=== PATIENT | male | born 1980 | race Caucasian/White ===

== ENCOUNTER 2020-11-08 04:10 | Emergency (ER) | payer SELFPAY ==
[~2020-11-08] VITALS: Ht 170.2 cm; Wt 61.4 kg
--- NOTE | 2020-11-08 04:14 | PHYS DOC ---
Past History Past Medical History: A-Fib, Alcoholism General Adult HPI: HPI: "..I ve been vomiting.. .. My gut hurts.. hope it not hepatitis or something.. hope may just bad food.. I do drink every night.. usually pint Jalen Beam whiskey..." Patient is a 40 year old male who presents with above hx and complaints of nausea, vomiting and weakness. Patient denies any intake of bad food. Does consume alcohol daily. Patient localizes pain to epigastric area. Patient dry heaving on arrival. No history of tarry stools. No recent travel outside [facility]. No specific ill contacts. Does not follow with primary care. Patient does smoke. Patient denies other drug use. No sick history of Covid contacts. Patient did not get flu vaccination this year. I Review of Systems: Review of Systems: Constitutional: Denies fever or chills Eyes: Denies change in visual acuity HENT: Denies nasal congestion or sore throat Respiratory: Denies cough or shortness of breath Cardiovascular: Denies chest pain or edema GI: complaints of abdominal pain, nausea, vomiting,. Pt denies bloody stools or diarrhea : Denies dysuria Musculoskeletal: Denies back pain or joint pain Integument: Denies rash Neurologic: Denies headache, focal weakness or sensory changes Endocrine: Denies polyuria or polydipsia Lymphatic: Denies swollen glands Psychiatric: Denies depression or anxiety Family History: Family History: Noncontributory to presentation Current Medications: Current Meds: See nursing for home meds Allergies: Allergies: No known drug allergies Physical Exam: PE: Constitutional:inj acute distress, ill in appearance. [] HENT: Normocephalic, atraumatic, bilateral external ears normal, oropharynx dry, no oral exudates, nose normal. [] Eyes: PERRLA, EOMI, conjunctiva normal, no discharge. [] Neck: Normal range of motion, no tenderness, supple, no stridor. [] Cardiovascular: Tachycardia heart rate regular rhythm, does appear to be having runs of A. fib on monitor that are intermittent, no murmur [] Lungs & Thorax: Bilateral breath sounds equal apex with scattered wheezes on auscultation [] Abdomen: Bowel sounds decreased, soft, epigastric tenderness, no masses, no pulsatile masses. Active dry heaves. Rebound epigastric area Skin: Warm, dry, no erythema, no rash. [] Back: No tenderness, no CVA tenderness. [] Extremities: No tenderness, no cyanosis, no clubbing, ROM intact, no edema. [] Neurologic: Alert and oriented X 3, normal motor function, normal sensory function, no focal deficits noted. [] Psychologic: Affect anxious, judgement normal, mood normal. [] EKG: EKG: My interpretation EKG shows a sinus tachycardia 119 bpm irregular rate and rhythm consistent with A. fib type pattern Radiology/Procedures: Radiology/Procedures: [[address] [address] IMAGING REPORT Signed PATIENT: GLORY DOMINGUEZ ACCOUNT: [id number] : 1980 LOCATION: ER AGE: 40 SEX: M EXAM STATUS: REG ER ORD. PHYSICIAN: KIRSTEN SMITH MD REASON: Abdomen pain, nausea and vomiting PROCEDURE: ACUTE ABDOMEN SERIES INDICATION: Reason: Abdomen pain, nausea and vomiting / Spl. Instructions: / History: COMPARISON: None. IMPRESSION: 3 views of the chest and abdomen obtained. No focal airspace consolidation or pulmonary edema. Air scattered throughout the large and small bowel in a nonspecific but not grossly obstructive pattern. Electronically signed by: Irene Ellis MD (11/08/2020 5:44 AM) DESKTOP- [id number] DICTATED AND SIGNED BY: IRENE ELLIS MD DATE: 11/08/20 0541 CC: KIRSTEN SMITH MD; PCP,NO ~MTH0 0 ][address] [address] IMAGING REPORT Signed PATIENT: GLORY DOMINGUEZ ACCOUNT: [id number] : 1980 LOCATION: ER AGE: 40 SEX: M EXAM STATUS: REG ER ORD. PHYSICIAN: KIRSTEN SMITH MD REASON: Abdomen pain, nausea and vomiting PROCEDURE: ACUTE ABDOMEN SERIES INDICATION: Reason: Abdomen pain, nausea and vomiting / Spl. Instructions: / History: COMPARISON: None. IMPRESSION: 3 views of the chest and abdomen obtained. No focal airspace consolidation or pulmonary edema. Air scattered throughout the large and small bowel in a nonspecific but not grossly obstructive pattern. Electronically signed by: Irene Ellis MD (11/08/2020 5:44 AM) DESKTOP- [id number] DICTATED AND SIGNED BY: IRENE ELLIS MD DATE: 11/08/20 0541 CC: KIRSTEN SMITH MD; PCP,NO ~MTH0 0 Heart Score: HEART Score for Chest Pain: HEART Score for Chest Pain Response (Comments) Value History Moderately Suspicious 1 ECG Nonspecific Repolarizatio 1 Age < 45 0 Risk Factors 1 or 2 Risk Factors 1 Troponin < Normal Limit 0 Total 3 Risk Factors: Risk Factors: DM, Current or recent (<one month) smoker, HTN, HLP, family history of CAD, obesity. Risk Scores: Score 0 - 3: 2.5% MACE over next 6 weeks - Discharge Home Score 4 - 6: 20.3% MACE over next 6 weeks - Admit for Clinical Observation Score 7 - 10: 72.7% MACE over next 6 weeks - Early Invasive Strategies Course & Med Decision Making: Course & Med Decision Making Pertinent Labs and Imaging studies reviewed. (See chart for details) Pt. endorsed to Dr. Owen at shift change. She will make disposition. Pt. to stay on clear fluid diet x 24 hrs. Take Zofran as needed for nausea and vomiting. Pepcid 20 mg twice a day. Follow up with primary. Will start patient on Eliquis 5 mg twice a day. Patient must follow-up with cardiology. Risk of discharge discussed at length with patient. Patient requesting discharge and no admission at this time. Patient advised excessive alcohol use can trigger A. fib or other heart dysrhythmias. Push fluids. Push fruit juices. Return if he elects to be admitted or have further evaluation. Patient insistent on discharge at this time. At time of discharge patient stated he felt much better and that he would follow-up. Did give the patient a 3-day work excuse a close follow-up with his primary care. Encourage patient to avoid further alcohol abuse. Impression: 1. Nausea and Vomiting 2. Viral Snydrome 3. Episodes of Afib- interment on monitor 4. Dehydration 5. Hx. of Alcohol Abuse [] Dragjerry Disclaimer: Reyes Disclaimer: This electronic medical record was generated, in whole or in part, using a voice recognition dictation system. Departure Departure: Referrals: PCP,RAKESH (PCP) Scripts Apixaban (ELIQUIS) 5 Mg Tablet 5 MG PO BID for afib for 30 Days, #60 TAB Prov: KIRSTEN SMITH MD 11/08/20 Ondansetron Hcl (ZOFRAN) 4 Mg Tablet 8 MG PO QIDPRN PRN for NAUSEA/VOMITING, #30 TAB Prov: KIRSTEN SMITH MD 11/08/20 Famotidine (PEPCID) 20 Mg Tablet 20 MG PO BID for gastritis for 30 Days, #60 TAB Prov: KIRSTEN SMITH MD 11/08/20 Dragon Disclaimer This chart was dictated in whole or in part using Voice Recognition software in a busy, high-work load, and often noisy Emergency Department environment. It may contain unintended and wholly unrecognized errors or omissions. KIRSTEN SMITH MD Nov 08, 2020 04:14
[2020-11-08] MEDS ORDERED: IV RINGERS SOLUTION,LACTATED 1,000 ML IV SCH (04:45)
[2020-11-08] MEDS ORDERED: MVI, ADULT NO.4 WITH VIT K 10 ML, THIAMINE INJ 100 MG in IV RINGERS SOLUTION,LACTATED 1... IV ONE (05:00)
[2020-11-08] MEDS ORDERED: ONDANSETRON PF 4 MG/2 ML VIAL. IVP ONE (05:00)
[2020-11-08] MEDS ORDERED: FAMOTIDINE 20 MG/2 ML VIAL IVP ONE (05:00)
[2020-11-08] MEDS ORDERED: FOLIC ACID 1 MG TABLET PO ONE (05:00)
--- NOTE | 2020-11-08 05:47 | RAD ---
INDICATION: Reason: Abdomen pain, nausea and vomiting / Spl. Instructions: / History: COMPARISON: None. IMPRESSION: 3 views of the chest and abdomen obtained. No focal airspace consolidation or pulmonary edema. Air scattered throughout the large and small slmi l in a nonspecific but not grossly obstructive pattern. Electronically signed by: Cassius Jeronimo MD (11/08/2020 5:44 AM) DESKTOP-[id number]
[2020-11-08 06:00] VITALS: BP 118/81
[2020-11-08 06:33] LABS: BASO # 0.1 x10^3/uL (0.0-0.2); BASO % 1 % (0-3); EOS % 0 % (0-3); HEMATOCRIT 45.2 % (39.0-53.0); HEMOGLOBIN 15.2 g/dL (13.0-17.5); LYMPH # 1.4 x10^3/uL (1.0-4.8); LYMPH % 14 % (24-48); MEAN CORPUSCULAR HEMOGLOBIN 31 pg (25-35); MEAN CORPUSCULAR HGB CONC 34 g/dL (31-37); MEAN CORPUSCULAR VOLUME 92 fL (79-100); MONO # 0.8 x10^3/uL (0.0-1.1); MONO % 7 % (0-9); NEUT # 7.9 x10^3uL (1.8-7.7); NEUT % 78 % (31-73); PLATELET COUNT 276 x10^3/uL (140-400); RED BLOOD COUNT 4.94 x10^6/uL (4.30-5.70); RED CELL DISTRIBUTION WIDTH 12.9 % (11.5-14.5); WHITE BLOOD COUNT 10.1 x10^3/uL (4.0-11.0)
[2020-11-08 06:44] LABS: CREATININE 1.1 mg/dL (0.7-1.3); GFR 74.5; POTASSIUM 4.3 mmol/L (3.5-5.1)
[2020-11-08 06:51] LABS: ALBUMIN 4.2 g/dL (3.4-5.0); DIRECT BILIRUBIN 0.1 mg/dL (0.0-0.2); TOTAL BILIRUBIN 0.2 mg/dL (0.2-1.0)
[2020-11-08] MEDS ORDERED: ONDA4TAB7 PO (07:03)
[2020-11-08] MEDS ORDERED: FAMO-63 PO (07:03)
[2020-11-08] MEDS ORDERED: APIX5TAB3 PO (07:09)
[2020-11-08] MEDS ORDERED: APIXABAN 5 MG TABLET. PO ONE (07:12)
--- NOTE | 2020-11-08 11:55 | EKG ---
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
== END 2020-11-08 07:34 | disposition home or self-care (01) ==
LOC: ER 04:10
DX: B34.9 Viral infection, unspecified (principal); I48.91 Unspecified atrial fibrillation; E86.0 Dehydration; R11.2 Nausea with vomiting, unspecified; F10.20 Alcohol dependence, uncomplicated; Y90.0 Blood alcohol level of less than 20 mg/100 ml
CPT/HCPCS: 36415; 74022; 80048; 80076; 82150; 82550; 83690; 84484; 85025; 85610; 85730; 93005; 96361; 96374; 99285; G0480; J2405; J7120

== ENCOUNTER 2021-01-25 22:43 | Emergency (ER) | payer SELFPAY ==
[~2021-01-25] VITALS: Ht 170.2 cm; Wt 66.7 kg
[~2021-01-25 22:43] MED LIST: APIX5TAB3 PO; FAMO-63 PO; ONDA4TAB7 PO
--- NOTE | 2021-01-25 22:48 | PHYS DOC ---
Past History Past Medical History: A-Fib, Alcoholism, MRSA Additional Past Medical Histor: alcoholism Past Surgical History: No Surgical History Smoking: Cigarettes Alcohol Use: Heavy General Adult HPI: HPI: ".. I got these abscess.. or infections.. I was started on Bactrim.. .all are getiting better.. except the Rt. calf one is still red.. the doctor upstairs.. said the abscess was too deep to drain.. but... it starting to hurt a lot ..." Patient is a 40 year old male who presents with above hx and complaints multiple areas of cellulitis and abscess formation. Patient currently on Bactrim DS 1 tablet twice a day has taken a total of 3 tablets since filling the prescription. Patient did not get a update in tetanus previously. Does not remember his last tetanus vaccination. Patient denies any history immune suppression. No recent travel. No specific ill contacts. Patient does smoke and drink alcohol daily. Patient has a 3 cm area of abscess with surrounding erythema. There is some striation. There is no adenopathy at knee or femoral. Review of Systems: Review of Systems: Constitutional: Denies fever or chills Eyes: Denies change in visual acuity HENT: Denies nasal congestion or sore throat Respiratory: Denies cough or shortness of breath Cardiovascular: Denies chest pain or edema GI: Denies abdominal pain, nausea, vomiting, bloody stools or diarrhea : Denies dysuria Musculoskeletal: Denies back pain or joint pain Integument: Complains of cellulitis and abscess right calf. Neurologic: Denies headache, focal weakness or sensory changes Endocrine: Denies polyuria or polydipsia Lymphatic: Denies swollen glands Psychiatric: Denies depression or anxiety Family History: Family History: Noncontributory to presentation Current Medications: Current Meds: See nursing for home meds Allergies: Allergies: Allergies Coded Allergies Type Severity Reaction Last Updated Verified No Known Drug Allergies 11/08/20 No Physical Exam: PE: Constitutional: Well developed, well nourished, no acute distress, non-toxic appearance. [] HENT: Normocephalic, atraumatic, bilateral external ears normal, oropharynx moist, no oral exudates, nose normal. [] Eyes: PERRLA, EOMI, conjunctiva normal, no discharge. [] Neck: Normal range of motion, no tenderness, supple, no stridor. [] Cardiovascular:Heart rate regular rhythm, no murmur [] Lungs & Thorax: Bilateral breath sounds clear to auscultation [] Abdomen: Bowel sounds normal, soft, no tenderness, no masses, no pulsatile masses. [] Skin: Warm, dry, no erythema, no rash. [] Back: No tenderness, no CVA tenderness. [] Extremities: No tenderness, no cyanosis, no clubbing, ROM intact, no edema. [] Neurologic: Alert and oriented X 3, normal motor function, normal sensory function, no focal deficits noted. [] Psychologic: Affect normal, judgement normal, mood normal. [] EKG: EKG: [] Radiology/Procedures: Radiology/Procedures: [] Heart Score: Risk Factors: Risk Factors: DM, Current or recent (<one month) smoker, HTN, HLP, family history of CAD, obesity. Risk Scores: Score 0 - 3: 2.5% MACE over next 6 weeks - Discharge Home Score 4 - 6: 20.3% MACE over next 6 weeks - Admit for Clinical Observation Score 7 - 10: 72.7% MACE over next 6 weeks - Early Invasive Strategies Course & Med Decision Making: Course & Med Decision Making Pertinent Labs and Imaging studies reviewed. (See chart for details) Procedure-area of abscess cleaned with Betadine. Incised area with a 15 blade with return of pus. Abscess cyst broken down. Then dressing then applied. Patient warned that site will bleed for some time. Patient to start compresses left very warm salt or Epson salts water. Patient did receive a IM injection of Rocephin. To do moist compresses with salt water or Epson salts 4 times a day. Afterwards a massage in the antibiotic ointment. Continue the Bactrim DS twice a day. Follow-up primary care. Return if any concerns. Patient reports some relief of pressure and pain after the incision and drainage. Take Tylenol and ibuprofen for pain. Impression: 1. Right calf abscess 2. History of alcohol abuse 3. Tobacco use [] Dragon Disclaimer: Dragon Disclaimer: This electronic medical record was generated, in whole or in part, using a voice recognition dictation system. Departure Departure: Referrals: PCP,RAKESH (PCP) Reyes Disclaimer This chart was dictated in whole or in part using Voice Recognition software in a busy, high-work load, and often noisy Emergency Department environment. It may contain unintended and wholly unrecognized errors or omissions. Dragon Disclaimer This chart was dictated in whole or in part using Voice Recognition software in a busy, high-work load, and often noisy Emergency Department environment. It may contain unintended and wholly unrecognized errors or omissions. KIRSTEN SMITH MD Jan 25, 2021 22:48
[2021-01-25 22:53] VITALS: BP 127/81
[2021-01-25] MEDS ORDERED: TETANUS AND DIPHTHERIA TOX/PF 0.5 ML VIAL. VAX IM ONE (23:45)
[2021-01-25] MEDS ORDERED: cefTRIAXone IM 1 GM VIAL IM ONE (23:55)
[2021-01-26] MEDS ORDERED: DIPH,PERTUSS(ACELL),TET VAC/PF 0.5 ML SYRINGE. VAX IM ONE
== END 2021-01-26 00:35 | disposition home or self-care (01) ==
LOC: ER 22:43
DX: L02.415 Cutaneous abscess of right lower limb (principal); F17.210 Nicotine dependence, cigarettes, uncomplicated; I48.91 Unspecified atrial fibrillation; F10.20 Alcohol dependence, uncomplicated; Y90.9 Presence of alcohol in blood, level not specified; Z86.14 Personal history of Methicillin resistant Staphylococcus aureus infection
CPT/HCPCS: 90471; 90715; 96372; 99284; J0696

== ENCOUNTER 2021-09-14 11:23 | Emergency (ER) | payer SELFPAY ==
[~2021-09-14] VITALS: Ht 170.2 cm; Wt 65.9 kg
--- NOTE | 2021-09-14 12:05 | RAD ---
Exam Date: 09/14/2021 11:53 AM XR CHEST 2V Indication: Reason: cough times 1 month / Spl. Instructions: / History: . FINDINGS/ IMPRESSION: The cardiac silhouette and pulmonary vasculature are within normal limits. There is no focal consolidation, pleural effusion or pneumothorax. The visualized osseous structures are intact. Electronically signed by: Clark Hahn MD (09/14/2021 12:03 PM) [id number]
--- NOTE | 2021-09-14 12:11 | PHYS DOC ---
Past History Past Medical History: A-Fib, Alcoholism, MRSA Additional Past Medical Histor: alcoholism Past Surgical History: No Surgical History Smoking: Cigarettes Alcohol Use: Heavy General Adult EDM: Chief Complaint: COUGH HPI: HPI: Patient is a 41-year-old male coming in for 1 month of cough. Patient states he was tested for COVID-19 2 weeks ago and it was negative. Denies any fevers, chills, loss of smell or taste, vomiting or diarrhea. Patient smokes a pack of cigarettes daily. Review of Systems: Review of Systems: All other systems within normal limits except for as noted in the HPI Allergies: Allergies: Allergies Coded Allergies Type Severity Reaction Last Updated Verified No Known Drug Allergies 09/14/21 No Physical Exam: PE: Constitutional: Well developed, well nourished, no acute distress, non-toxic appearance. [] HENT: Normocephalic, atraumatic, bilateral external ears normal, nose normal. [] Eyes: PERRLA, conjunctiva normal, no discharge. [] Neck: No rigidity, supple, no stridor. [] Cardiovascular: Regular rate and rhythm, brisk cap refill [] Lungs & Thorax: Non labored symmetric respirations, no tachypnea or respiratory distress [] Abdomen: Soft, nondistended. Skin: Warm, dry, no erythema, no rash. [] Back: Unremarkable Extremities: No deformities, range of motion grossly intact, no lower extremity edema [] Neurologic: Alert and oriented X 3, no focal deficits noted. [] Psychologic: Affect normal, judgement normal, mood normal. [] Current Patient Data: Vital Signs: Vital Signs Date Time Temp Pulse Resp B/P (MAP) Pulse Ox O2 Delivery O2 Flow Rate FiO2 09/14/21 11:35 98.0 120 18 126/89 (101) 100 Room Air EKG: EKG: [] Radiology/Procedures: Radiology/Procedures: [address] [address] IMAGING REPORT Signed PATIENT: GLORY DOMINGUEZ ACCOUNT: [id number] : 1980 LOCATION: ER AGE: 41 SEX: M EXAM STATUS: REG ER ORD. PHYSICIAN: CONSTANTINO JOHNSTON MD REASON: cough times 1 month PROCEDURE: CHEST PA & LATERAL Exam Date: 09/14/2021 11:53 AM XR CHEST 2V Indication: Reason: cough times 1 month / Spl. Instructions: / History: . FINDINGS/ IMPRESSION: The cardiac silhouette and pulmonary vasculature are within normal limits. There is no focal consolidation, pleural effusion or pneumothorax. The visualized osseous structures are intact. Electronically signed by: Zack Wylie MD (09/14/2021 12:03 PM) [id number] DICTATED AND SIGNED BY: ZACK WYLIE MD DATE: 09/14/21 1159 CC: CONSTANTINO JOHNSTON MD; PCP,NO ~MTH0 0 [] Heart Score: C/O Chest Pain: No Risk Factors: Risk Factors: DM, Current or recent (<one month) smoker, HTN, HLP, family history of CAD, obesity. Risk Scores: Score 0 - 3: 2.5% MACE over next 6 weeks - Discharge Home Score 4 - 6: 20.3% MACE over next 6 weeks - Admit for Clinical Observation Score 7 - 10: 72.7% MACE over next 6 weeks - Early Invasive Strategies Course & Med Decision Making: Course & Med Decision Making Pertinent Labs and Imaging studies reviewed. (See chart for details) [] Dragon Disclaimer: Dragon Disclaimer: This electronic medical record was generated, in whole or in part, using a voice recognition dictation system. Departure Departure: Impression: Primary Impression: Cough Additional Impression: Person under investigation for COVID-19 Disposition: 01 HOME / SELF CARE / HOMELESS Condition: STABLE Referrals: PCP,NO (PCP) Patient Instructions: Cough, Adult Additional Instructions: You have been tested for or diagnosed with COVID-19. It is an infection caused by a new type of coronavirus. COVID-19 will cause cold-like or mild flu symptoms in most. It can cause more severe symptoms like problems breathing in some. There is no treatment for COVID-19. The body will clear the infection over time. Self-care will help to ease discomfort. Steps to Take: Self-Care Rest as needed. Healthy habits may help you feel better. Steps include: Choose healthy foods including fruits and vegetables. Drink water throughout the day. Get plenty of sleep each night. If you smoke, try to quit. It may ease breathing. Avoid alcohol. Keep Others Healthy The virus can spread to others. Droplets are released every time you sneeze or cough. The droplets can get into the mouth, nose, or eyes of people near you and lead to infection. To lower the chances of spreading COVID-19 to others: Stay at home until your doctor has said it is safe to leave. If you tested positive this will mean staying isolated until both of the following are true: At least 7 days have passed since the start of illness. You are free of fever for at least 72 hours without the use of medicine. During this time: - Avoid public areas, events, or transportation. Do not return to work or school until your doctor has said it is safe to do so. - Call ahead if you need to go to a medical center. Let them know you may have COVID-19. It will help them guide you where to go. They may also ask you to wear a facemask when you come to the office. - If you call for emergency medical services, let them know you may have COVID- 19. While at home: - Try to avoid close contact with others. Stay about 6 feet away. - If possible, spend most of your time in a separate room from others. - Use a face mask if you will be in close contact with others such as sharing a room or vehicle. - Have someone wipe down common surfaces in the home. Use household veterinary toxicologist every day on areas like doorknobs, counters, or sinks. - Cough or sneeze into a tissue. Throw the tissue away right after use. If a tissue is not available, cough or sneeze into your elbow. - Wash your hands often. Wash them after sneezing or coughing. Use soap and water and wash for at least 20 seconds. Alcohol based hand ship cleaner can be used if soap and water is not available. - Do not prepare food for others. Avoid sharing personal items like forks, spoons, or toothbrushes. - Avoid close contact with pets while you are sick. There is no evidence of the virus passing to pets. This is a safety step until more is known about this virus. Isolation can be frustrating. Social interaction can help. Keep in touch with friends and family through phone and tech options. You can still interact with others in your home, just keep a safe distance of about 6 feet. Follow-up: Your doctors office will check in with you to see if there are any changes in your health. You may be asked to keep track of symptoms to share with them. They will also let you know when you are clear to be in public again. Problems to Look Out For: Contact your doctor if your recovery is not going as you expect. Get emergency care if you have problems such as: - Trouble breathing - Nonstop chest pain or pressure - Changes in awareness, confusion, or problems waking - Lips or face have bluish color - Worsening of symptoms If you think you have an emergency, call for emergency medical services right away. As taken from [facility] CONSTANTINO JOHNSTON MD Sep 14, 2021 12:11
[2021-09-14 12:27] LABS: INFLUENZA A PATIENT NEGATIVE (NEGATIVE); INFLUENZA B PATIENT NEGATIVE (NEGATIVE)
[2021-09-14 12:41] VITALS: BP 122/73
== END 2021-09-14 12:40 | disposition home or self-care (01) ==
LOC: ER 11:23
DX: R05.9 Cough, unspecified (principal); F17.210 Nicotine dependence, cigarettes, uncomplicated; Z20.822 Contact with and (suspected) exposure to COVID-19
CPT/HCPCS: 71046; 87804; 99284; C9803; U0003

== ENCOUNTER 2022-01-08 00:12 | Emergency (ER) | payer SELFPAY ==
[~2022-01-08] VITALS: Ht 170.2 cm; Wt 65.9 kg
--- NOTE | 2022-01-08 00:28 | PHYS DOC ---
Past History Past Medical History: A-Fib, Alcoholism, MRSA Additional Past Medical Histor: alcoholism Past Surgical History: No Surgical History Smoking: Cigarettes Alcohol Use: Heavy General Adult HPI: HPI: ".. I hurt all over.. puking now.. I did nt get my COVID shot or. .. flu...but I worried I have COVID now.. " Patient is a 41 year old male who presents with above hx fever, nausea, vomiting, chills, myalgia, arthralgia, malaise. Pt. did not get flu or covid vaccinations. Not had Pneumovax . Patient smokes about half pack a day and drinks alcohol daily. No recent travel. No significant ill contacts. No bad food intake. No history immunosuppression. Review of Systems: Review of Systems: Constitutional: Complains of fever or chills Eyes: Denies change in visual acuity HENT: Denies nasal congestion or sore throat Respiratory: Complains of cough and wheezing Cardiovascular: Denies chest pain or edema GI: Complains of epigastric abdominal pain, nausea, vomiting. Denies, bloody stools or diarrhea : Denies dysuria Musculoskeletal: Complains of myalgia arthralgia Integument: Denies rash Neurologic: Denies headache, focal weakness or sensory changes Endocrine: Denies polyuria or polydipsia Lymphatic: Denies swollen glands Psychiatric: Complains of anxiety Family History: Family History: Noncontributory to presentation Current Medications: Current Meds: Current Medications Medications (Trade) Dose Ordered Sig/[facility] Start Time Stop Time Status Last Admin Dose Admin Ondansetron HCl (Zofran Odt) 8 mg 1X ONCE 01/08/22 01:00 01/08/22 01:01 Allergies: Allergies: Allergies Coded Allergies Type Severity Reaction Last Updated Verified No Known Drug Allergies 09/14/21 No Physical Exam: PE: Constitutional: Moderate acute distress, ill appearance. [] HENT: Normocephalic, atraumatic, bilateral external ears normal, oropharynx moist, no oral exudates, nose swollen turbinates and clear rhinorrhea. Very poor dentition. Eyes: PERRLA, EOMI, conjunctiva normal, no discharge. [] Neck: Normal range of motion, no tenderness, supple, no stridor. [] Cardiovascular: Tachycardia heart rate regular rhythm, no murmur []. Bedside monitor shows a sinus tachycardia Lungs & Thorax: Bilateral breath sounds equal apex with scattered wheezes and crackles on auscultation [] Abdomen: Bowel sounds normal, soft, epigastric tenderness, no masses, no pulsatile masses. 1 episode of vomiting while in the ED. Skin: Warm, dry, no erythema, no rash. Poor turgor Back: No tenderness, no CVA tenderness. [] Extremities: No tenderness, no cyanosis, no clubbing, ROM intact, no edema. No cording appreciated Neurologic: Alert and oriented X 3, normal motor function, normal sensory function, no focal deficits noted. [] Psychologic: Affect anxious, judgement normal, mood normal. [] EKG: EKG: My interpretation EKG shows sinus tachycardia 124 bpm. Has a mild right bundle branch block. But no findings of acute STEMI of contralateral changes time of EKG is 119 hours [] Radiology/Procedures: Radiology/Procedures: [][address] [address] IMAGING REPORT Signed PATIENT: GLORY DOMINGUEZ ACCOUNT: [id number] : 1980 LOCATION: ER AGE: 41 SEX: M EXAM STATUS: REG ER ORD. PHYSICIAN: KIRSTEN SMITH MD REASON: cough, n/v, fever PROCEDURE: ACUTE ABDOMEN SERIES XR ABDOMEN COMP ACUTE INDICATION: cough, n/v, fever COMPARISON STUDY: 09/14/2021. FINDINGS: Lungs: Normal lung volume. No pulmonary mass or consolidation. The tracheobronchial tree and hilar structures are normal. Pleura: No pleural effusion or pneumothorax. Heart and Mediastinum: The cardiomediastinal silhouette is normal. The great vessels of the thorax are normal. Abdomen: Nonobstructive bowel gas pattern. No free air. IMPRESSION: 1. Nonobstructive bowel gas pattern. No free air. 2. No consolidation Electronically signed by: Jose L Duggan MD (01/08/2022 1:35 AM) [facility] DICTATED AND SIGNED BY: JOSE L DUGGAN MD DATE: 01/08/22 0134 CC: KIRSTEN SMITH MD; PCP,NO ~MTH0 0 Heart Score: C/O Chest Pain: No HEART Score for Chest Pain: HEART Score for Chest Pain Response (Comments) Value History Moderately Suspicious 1 ECG Nonspecific Repolarizatio 1 Age < 45 0 Risk Factors 1 or 2 Risk Factors 1 Troponin < Normal Limit 0 Total 3 Risk Factors: Risk Factors: DM, Current or recent (<one month) smoker, HTN, HLP, family history of CAD, obesity. Risk Scores: Score 0 - 3: 2.5% MACE over next 6 weeks - Discharge Home Score 4 - 6: 20.3% MACE over next 6 weeks - Admit for Clinical Observation Score 7 - 10: 72.7% MACE over next 6 weeks - Early Invasive Strategies Course & Med Decision Making: Course & Med Decision Making Pertinent Labs and Imaging studies reviewed. (See chart for details) Stop smoking. Avoid excessive alcohol use. Follow-up pending labs and cultures. Take Zithromax 250 a day. Use MDI 2 puffs 4 times a day. Take Zofran 8 mg up to 4 times a day for active nausea and vomiting. Self isolate for the next 5 days. Tylenol and ibuprofen for discomfort. Clear fluid diet if nausea vomiting. Would get COVID vaccination and flu vaccination and Pneumovax went over this acute illness. Clear fluid diet if you are active vomiting no solids. No milk products. [] Impression: 1. Atypical pneumonia-suspect viral 2. Alcohol abuse 3. Dehydration 4. Elevated AST 23, ALT 138, alk phos 118 5. Mild leukocytosis 11.7 6. Mild hyponatremia 133 and potassium 3.4 7. Tobacco use Dragon Disclaimer: Dragon Disclaimer: This electronic medical record was generated, in whole or in part, using a voice recognition dictation system. Departure Departure: Referrals: PCP,NO (PCP) Scripts Ondansetron (ONDANSETRON ODT) 8 Mg Tab.rapdis 8 MG PO QIDPRN PRN for NAUSEA/VOMITING, #30 TAB Prov: KIRSTEN SMITH MD 01/08/22 Azithromycin (ZITHROMAX) 250 Mg Tablet 250 MG PO DAILY for ANTI-BIOTIC for 5 Days, #5 TAB 0 Refills Prov: KIRSTEN SMITH MD 01/08/22 Reyes Disclaimer This chart was dictated in whole or in part using Voice Recognition software in a busy, high-work load, and often noisy Emergency Department environment. It may contain unintended and wholly unrecognized errors or omissions. KIRSTEN SMITH MD Jan 08, 2022 00:28
[2022-01-08 00:48] LABS: INFLUENZA A PATIENT NEGATIVE (NEGATIVE); INFLUENZA B PATIENT NEGATIVE (NEGATIVE)
[2022-01-08] MEDS ORDERED: ONDANSETRON ODT 4 MG TAB.RAPDIS PO ONE (01:00)
[2022-01-08] MEDS ORDERED: IV RINGERS SOLUTION,LACTATED 1,000 ML IV SCH (01:00)
[2022-01-08] MEDS ORDERED: KETOROLAC 30 MG/ML VIAL. IVP ONE (01:00)
[2022-01-08] MEDS ORDERED: FAMOTIDINE 20 MG/2 ML VIAL IVP ONE (01:00)
[2022-01-08] MEDS ORDERED: ACETAMINOPHEN 500 MG TABLET PO ONE (01:00)
[2022-01-08 01:29] LABS: CALCIUM 8.9 mg/dL (8.5-10.1); CREATININE 1.1 mg/dL (0.7-1.3); GFR 74.1; POTASSIUM 3.4 mmol/L (3.5-5.1)
[2022-01-08] MEDS ORDERED: ONDANSETRON PF 4 MG/2 ML VIAL. IVP ONE (01:30)
[2022-01-08 01:34] LABS: BARBITURATES NEG (NEG); BENZODIAZEPINES NEG (NEG); CANNABINOIDS NEG (NEG); COCAINE NEG (NEG); METHADONE NEG (NEG); OPIATES NEG (NEG); PHENCYCLIDINE NEG (NEG)
[2022-01-08 01:34] LABS: ALBUMIN 3.9 g/dL (3.4-5.0); BASO # 0.1 x10^3/uL (0.0-0.2); BASO % 1 % (0-3); DIRECT BILIRUBIN 0.2 mg/dL (0.0-0.2); EOS % 0 % (0-3); HEMATOCRIT 48.9 % (39.0-53.0); HEMOGLOBIN 16.6 g/dL (13.0-17.5); LYMPH # 0.8 x10^3/uL (1.0-4.8); LYMPH % 7 % (24-48); MEAN CORPUSCULAR HEMOGLOBIN 32 pg (25-35); MEAN CORPUSCULAR HGB CONC 34 g/dL (31-37); MEAN CORPUSCULAR VOLUME 94 fL (79-100); MONO # 0.2 x10^3/uL (0.0-1.1); MONO % 2 % (0-9); NEUT # 10.6 x10^3uL (1.8-7.7); NEUT % 91 % (31-73); PLATELET COUNT 222 x10^3/uL (140-400); RED CELL DISTRIBUTION WIDTH 13.1 % (11.5-14.5); TOTAL BILIRUBIN 0.6 mg/dL (0.2-1.0); TOTAL PROTEIN 7.7 g/dL (6.4-8.2); WHITE BLOOD COUNT 11.7 x10^3/uL (4.0-11.0)
[2022-01-08 01:36] LABS: BACTERIA,URINE 0 /HPF (0-FEW); CLARITY,URINE CLEAR; COLOR,URINE YELLOW; GLUCOSE,URINE NEG (NEG); NITRITE,URINE NEG (NEG); RBC,URINE OCC /HPF (0-2); SQUAMOUS EPITHELIAL CELL,UR OCC /LPF; UROBILINOGEN,URINE 0.2 mg/dL (0.2 mg/dL); WBC,URINE 0 /HPF (0-4)
[2022-01-08 01:38] LABS: AMPHETAMINE/METHAMPHETAMINE NEG (NEG)
--- NOTE | 2022-01-08 01:38 | RAD ---
XR ABDOMEN COMP ACUTE INDICATION: cough, n/v, fever COMPARISON STUDY: 09/14/2021. FINDINGS: Lungs: Normal lung volume. No pulmonary mass or consolidation. The tracheobronchial tree and hilar st ructures are normal. Pleura: No pleural effusion or pneumothorax. Heart and Mediastinum: The cardiomediastinal silhouette is normal. The great vessels of the thorax ar e normal. Abdomen: Nonobstructive bowel gas pattern. No free air. IMPRESSION: 1. Nonobstructive bowel gas pattern. No free air. 2. No consolidation Electronically signed by: Bc Lopez MD (01/08/2022 1:35 AM) [facility]
[2022-01-08] MEDS ORDERED: IV RINGERS SOLUTION,LACTATED 1,000 ML IV ONE (02:15)
[2022-01-08] MEDS ORDERED: AZIT250T PO (02:21)
[2022-01-08] MEDS ORDERED: ONDA8TAB15 PO (02:21)
[2022-01-08] MEDS ORDERED: AZITHROMYCIN 250 MG TABLET. PO ONE (02:30)
--- NOTE | 2022-01-08 02:51 | EKG ---
[address] [address] Test Date: 2022-01-08 Test Time: 01:19:00 Pat Name: GLORY DOMINGUEZ Department: Room: Gender: M Barrel Rifler: ZAIRA : 1980 Requested By: KIRSTEN SMITH Order Number: [id number] Reading MD: Orlando Quarles Measurements Intervals [place] Rate: 124 P: 211 KS: 130 QRS: 16 QRSD: 90 T: 26 QT: 334 QTc: 484 Interpretive Statements SINUS TACHYCARDIA Electronically Signed On 01-08-2022 19:25:37 HEALTH PROGRAM ANALYST by Orlando Quarles
[2022-01-08 02:55] VITALS: BP 112/71
== END 2022-01-08 02:55 | disposition home or self-care (01) ==
LOC: ER 00:12
DX: J18.9 Pneumonia, unspecified organism (principal); F10.20 Alcohol dependence, uncomplicated; E86.0 Dehydration; R79.89 Other specified abnormal findings of blood chemistry; D72.829 Elevated white blood cell count, unspecified; E87.1 Hypo-osmolality and hyponatremia; I48.91 Unspecified atrial fibrillation; F17.210 Nicotine dependence, cigarettes, uncomplicated; Z20.822 Contact with and (suspected) exposure to COVID-19; Y90.0 Blood alcohol level of less than 20 mg/100 ml
CPT/HCPCS: 36415; 74022; 80048; 80076; 80307; 81001; 82150; 82550; 83690; 84484; 85025; 86705; 86709; 86803; 87340; 87428; 93005; 96361; 96374; 96375; 99285; J1885; J2405; J3490; J7120; Q0162